=== PATIENT | female | born 1950 | race Hispanic/Latino ===

== ENCOUNTER 2017-11-15 12:00 | Inpatient (IN) | payer MEDICARE, OTHER ==
[~2017-11-15] VITALS: Ht 157.5 cm; Wt 75.9 kg
[2017-11-24 12:47] LABS: BASOPHILS % (AUTO) 0.6 % (0.0-5.0); EOSINOPHILS % (AUTO) 0.9 % (0.0-8.0); HEMATOCRIT 38.1 % (36-48); LYMPHOCYTES % (AUTO) 18.7 % (21.0-51.0); MEAN CORPUSCULAR HEMOGLOBIN 27.9 pg (27.0-33.0); MEAN CORPUSCULAR HGB CONC 33.5 g/dL (32.0-36.0); MEAN CORPUSCULAR VOLUME 83.2 fL (79-99); MONOCYTES % (AUTO) 6.2 % (3.0-13.0); NEUTROPHILS % (AUTO) 73.6 % (40.0-77.0); PLATELET COUNT (AUTO) 182 K/uL (130-400); RED BLOOD CELL COUNT(AUTO) 4.58 MIL/uL (4.00-5.50); RED CELL DISTRIBUTION WIDTH 14.2 % (11.0-15.5); WHITE BLOOD COUNT (AUTO) 6.7 K/uL (4.8-10.8)
[2017-11-24 13:04] LABS: INR 0.99 (0.85-1.15); PARTIAL THROMBOPLASTIN TIME 29.9 SEC (26.3-35.5); PROTHROMBIN TIME 10.4 SEC (9.6-11.6)
[2017-11-24 13:13] VITALS: BP 139/59
[2017-11-24] MEDS ORDERED: LISI1TAB13 PO (13:24)
[2017-11-24] MEDS ORDERED: FLUT16H NASAL (13:24)
[2017-11-24] MEDS ORDERED: LEVO125T11 PO (13:24)
[2017-11-24] MEDS ORDERED: ALBU8.5H8 IH (13:24)
[2017-11-24] MEDS ORDERED: ALBUTEROL NEB (13:25)
[2017-11-24 13:31] LABS: CREATININE 1.1 mg/dL (0.5-1.5)
[2017-11-24] MEDS ORDERED: BISACODYL 10 MG SUPP.RECT RC PRN (14:15)
[2017-11-27] MEDS ORDERED: BISACODYL 10 MG SUPP.RECT RC PRN (14:00)
[2017-11-28] VITALS (27 sets, daily range): BP systolic 105–159; BP diastolic 53–89
[2017-11-28] MEDS ORDERED: BISACODYL 10 MG SUPP.RECT RC PRN ×2 (05:30→18:45)
[2017-11-28] MEDS ORDERED: MAGNESIUM HYDROXIDE 30 ML/UDCUP PO PRN ×2 (05:30→18:45)
[2017-11-28] MEDS ORDERED: DEXTROSE 5%-LACTATED RINGERS 1,000 ML IV SCH ×2 (05:30→18:45)
[2017-11-28 09:16] LABS: APPEARANCE,URINE Clear (CLEAR); BILIRUBIN,URINE Small (NEGATIVE); GLUCOSE, URINE (UA) Negative (NEGATIVE); KETONES,URINE Trace mg/dL (NEGATIVE); LEUKOCYTE ESTERASE ,URINE Moderate (NEGATIVE); NITRATE,URINE Negative (NEGATIVE); OCCULT BLOOD,URINE Nonhemolyzed Trace (NEGATIVE); PROTEIN,URINE Negative (NEGATIVE); UROBILINOGEN,URINE 0.2 mg/dL (0.2-1.0)
[2017-11-28 09:20] LABS: COLOR,URINE YELLOW (YELLOW)
[2017-11-28] MEDS: GENTAMICIN 80 MG/NS 100 ML PB 100 ML IV SCH ×3 (09:30→19:46)
[2017-11-28 09:47] LABS: BACTERIA,URINE Few /HPF (None Seen); MUCUS,URINE Moderate LPF (None Seen)
[2017-11-28] MEDS ORDERED: LACTATED RINGERS 1000ML 1,000 ML IV ONE (09:48)
[2017-11-28] MEDS: CEFAZOLIN SODIUM 1 GM VIAL IVP SCH ×3 (11:08→19:45)
[2017-11-28] MEDS ORDERED: ROPIVACAINE 0.5% 5MG/ML 30ML IJ ONE ×2 (13:26→15:10)
[2017-11-28] MEDS ORDERED: PROPOFOL 10 MG/ML 20ML VIAL IV ONE (13:27)
[2017-11-28] MEDS ORDERED: FENTANYL CITRATE PF 50 MCG/1 ML 2ML VIAL ONE ×2 (13:27→14:11)
[2017-11-28] MEDS ORDERED: MIDAZOLAM HCL 1 MG/ML 2ML VIAL ONE (13:28)
[2017-11-28] MEDS ORDERED: ROCURONIUM BROMIDE 10MG/1ML 5ML VL ONE (13:32)
[2017-11-28 16:21] LABS: HEMATOCRIT 34.1 % (36-48)
[2017-11-28] MEDS ORDERED: MEPERIDINE-PF 25 MG/ML SYG ONE (17:16)
[2017-11-28] MEDS ORDERED: MORPHINE SULFATE 10 MG/ML 1ML SYG IM PRN (18:45)
[2017-11-28] MEDS ORDERED: PROMETHAZINE HCL 25 MG/ML 1ML AMPULE IM PRN (18:45)
[2017-11-28 19:18] LABS: HEMATOCRIT 35.3 % (36-48)
[2017-11-28] MEDS ORDERED: MORPHINE SULFATE 8 MG/ML VIAL ONE (19:41)
[2017-11-28] MEDS ORDERED: CEFTRIAXONE 1GM/D5W 50ML 50 ML IV SCH (22:45)
[2017-11-29] VITALS (7 sets, daily range): BP systolic 102–151; BP diastolic 60–76
[2017-11-29 00:45] LABS: HEMATOCRIT 34.6 % (36-48)
[2017-11-29] MEDS: CEFAZOLIN SODIUM 1 GM VIAL IVP SCH ×2 (01:58→09:58)
[2017-11-29] MEDS: GENTAMICIN 80 MG/NS 100 ML PB 100 ML IV SCH (03:49)
[2017-11-29 06:15] LABS: HEMATOCRIT 32.7 % (36-48)
[2017-11-29] MEDS ORDERED: MORPHINE SULFATE 8 MG/ML VIAL ONE (09:51)
[2017-11-29] MEDS: CEFTRIAXONE SODIUM 1 GM IV SCH (09:58)
[2017-11-29] MEDS ORDERED: LACTATED RINGERS 1000ML 1,000 ML IV ONE (10:10)
[2017-11-29] MEDS ORDERED: ENOXAPARIN SODIUM 40 MG/0.4 ML SYRINGE SQ SCH (15:00)
[2017-11-29] MEDS: ALBUTEROL SULFATE 0.083% 2.5 MG/3 ML INH IH SCH ×2 (19:40→23:35)
[2017-11-29] MEDS: APIXABAN 2.5 MG TABLET PO SCH (20:23)
[2017-11-29] MEDS: ACETAMINOPHEN 325 MG TAB PO PRN (20:23)
[2017-11-30 04:00] VITALS: BP 122/64
[2017-11-30 05:53] LABS: POTASSIUM 3.6 mmol/L (3.5-5.1)
[2017-11-30 05:54] LABS: HEMATOCRIT 31.7 % (36-48); MEAN CORPUSCULAR HEMOGLOBIN 28.5 pg (27.0-33.0); MEAN CORPUSCULAR HGB CONC 34.2 g/dL (32.0-36.0); MEAN CORPUSCULAR VOLUME 83.3 fL (79-99); PLATELET COUNT (AUTO) 124 K/uL (130-400); RED CELL DISTRIBUTION WIDTH 13.9 % (11.0-15.5)
[2017-11-30] MEDS: ALBUTEROL SULFATE 0.083% 2.5 MG/3 ML INH IH SCH ×4 (05:54→23:51)
[2017-11-30 07:55] VITALS: BP 142/66
[2017-11-30] MEDS: FLUTICASONE PROPIONATE 50MCG/SPRAY 16 GM BOTTLE EN SCH (09:15)
[2017-11-30] MEDS: CEFTRIAXONE SODIUM 1 GM IV SCH (09:15)
[2017-11-30] MEDS: APIXABAN 2.5 MG TABLET PO SCH ×2 (09:15→19:51)
[2017-11-30] MEDS: LISINOPRIL 20 MG TABLET PO SCH (09:16)
[2017-11-30] MEDS: HYDROCHLOROTHIAZIDE 25 MG TABLET PO SCH (09:16)
[2017-11-30] MEDS: ACETAMINOPHEN 325 MG TAB PO PRN ×2 (09:16→19:51)
[2017-11-30] MEDS: LEVOTHYROXINE 125 MCG TABLET PO SCH (09:17)
[2017-11-30] MEDS ORDERED: POTASSIUM CHLORIDE 10% ELIXIR 20 MEQ/15 ML UDCUP PO PRN (11:00)
[2017-11-30] MEDS ORDERED: POTASSIUM CHLORIDE 20MEQ/100ML 100 ML IV PRN (11:00)
[2017-11-30] MEDS ORDERED: LIDOCAINE HCL-MPF 1% 2ML VIAL IVP PRN (11:00)
[2017-11-30] MEDS: ACETAMINOPHEN-CODEINE 300/30MG TAB PO PRN (11:16)
[2017-11-30 11:33] VITALS: BP 143/70
[2017-11-30 12:22] LABS: APPEARANCE,URINE Cloudy (CLEAR); BILIRUBIN,URINE Negative (NEGATIVE); COLOR,URINE Yellow (YELLOW); GLUCOSE, URINE (UA) Negative (NEGATIVE); KETONES,URINE Negative (NEGATIVE); LEUKOCYTE ESTERASE ,URINE Trace (NEGATIVE); NITRATE,URINE Negative (NEGATIVE); OCCULT BLOOD,URINE Small (NEGATIVE); PH,URINE 6.5 (5.0-8.0); PROTEIN,URINE Negative (NEGATIVE); UROBILINOGEN,URINE 0.2 mg/dL (0.2-1.0)
[2017-11-30] MEDS: POTASSIUM CHLORIDE 20 MEQ ERTAB PO PRN ×2 (12:38→15:09)
[2017-11-30 13:22] LABS: BACTERIA,URINE Few /HPF (None Seen); MUCUS,URINE Rare LPF (None Seen); RBC,URINE 0-1 /HPF (0-1); SQUAMOUS EPITHELIAL CELL,UR Moderate /HPF (0-2)
[2017-11-30] MEDS ORDERED: PHENAZOPYRIDINE HCL 200 MG TABLET PO SCH (14:00)
[2017-11-30] MEDS: PHENAZOPYRIDINE HCL 200 MG TABLET PO SCH ×2 (15:08→19:51)
[2017-11-30 16:34] VITALS: BP 133/62
[2017-11-30 20:09] VITALS: BP 142/74
[2017-12-01] VITALS (7 sets, daily range): BP systolic 120–146; BP diastolic 49–78
[2017-12-01] MEDS: ACETAMINOPHEN-CODEINE 300/30MG TAB PO PRN ×2 (03:52→10:22)
[2017-12-01] MEDS: ALBUTEROL SULFATE 0.083% 2.5 MG/3 ML INH IH SCH ×3 (07:17→19:55)
[2017-12-01] MEDS: LISINOPRIL 20 MG TABLET PO SCH (09:10)
[2017-12-01] MEDS: HYDROCHLOROTHIAZIDE 25 MG TABLET PO SCH (09:10)
[2017-12-01] MEDS: LEVOTHYROXINE 125 MCG TABLET PO SCH (09:10)
[2017-12-01] MEDS: APIXABAN 2.5 MG TABLET PO SCH ×2 (09:10→22:52)
[2017-12-01] MEDS: PHENAZOPYRIDINE HCL 200 MG TABLET PO SCH ×3 (09:10→22:52)
[2017-12-01] MEDS: CEFTRIAXONE SODIUM 1 GM IV SCH (09:15)
[2017-12-01] MEDS: FLUTICASONE PROPIONATE 50MCG/SPRAY 16 GM BOTTLE EN SCH (10:25)
[2017-12-02] MEDS: ALBUTEROL SULFATE 0.083% 2.5 MG/3 ML INH IH SCH ×3 (00:48→11:16)
[2017-12-02] MEDS: ACETAMINOPHEN-CODEINE 300/30MG TAB PO PRN (02:16)
[2017-12-02 03:45] VITALS: BP 123/59
[2017-12-02 08:25] VITALS: BP 149/69
[2017-12-02] MEDS: LISINOPRIL 20 MG TABLET PO SCH (08:50)
[2017-12-02] MEDS: HYDROCHLOROTHIAZIDE 25 MG TABLET PO SCH (08:50)
[2017-12-02] MEDS: LEVOTHYROXINE 125 MCG TABLET PO SCH (08:50)
[2017-12-02] MEDS: CEFTRIAXONE SODIUM 1 GM IV SCH (08:50)
[2017-12-02] MEDS: PHENAZOPYRIDINE HCL 200 MG TABLET PO SCH (08:50)
[2017-12-02] MEDS: APIXABAN 2.5 MG TABLET PO SCH (08:53)
[2017-12-02] MEDS: FLUTICASONE PROPIONATE 50MCG/SPRAY 16 GM BOTTLE EN SCH (08:54)
[2017-12-02 11:00] VITALS: BP 138/61
== END 2017-12-02 12:30 | disposition home or self-care (01) | DRG 470 ==
LOC: EDSTATUS 12:00 → DAHIP 11-28 08:52 → 4BH 11-28 18:11
PROC: 0SRD0JA Replacement of Left Knee Joint with Synthetic Substitute, Uncemented, Open Approach (ICD-10-PCS; principal; 2017-11-28 10:30)
DX: M17.12 Unilateral primary osteoarthritis, left knee (principal); E03.9 Hypothyroidism, unspecified; N39.0 Urinary tract infection, site not specified; E78.5 Hyperlipidemia, unspecified; I10 Essential (primary) hypertension; J45.909 Unspecified asthma, uncomplicated; M21.169 Varus deformity, not elsewhere classified, unspecified knee; Z79.01 Long term (current) use of anticoagulants; Z87.440 Personal history of urinary (tract) infections; Z88.9 Allergy status to unspecified drugs, medicaments and biological substances; Z90.710 Acquired absence of both cervix and uterus; Z87.828 Personal history of other (healed) physical injury and trauma; Z88.5 Allergy status to narcotic agent; Z88.8 Allergy status to other drugs, medicaments and biological substances
CPT/HCPCS: 36415; 73560; 80048; 81001; 85014; 85018; 85025; 85027; 85610; 85730; 88309; 88311; 94640; 94664; 94760; 97039; A4218; A4606; J0690; J0696; J1580; J2175; J2250; J2270; J2550; J2704; J2795; J3010; J3490; J7120

== ENCOUNTER 2017-12-15 10:52 | Emergency (ER) | payer MEDICARE, OTHER ==
[~2017-12-15 10:52] MED LIST: ALBU8.5H8 IH; ALBUTEROL NEB; FLUT16H NASAL; LEVO125T11 PO; LISI1TAB13 PO
[2017-12-15 11:25] LABS: BASOPHILS % (AUTO) 0.4 % (0.0-5.0); EOSINOPHILS % (AUTO) 0.1 % (0.0-8.0); LYMPHOCYTES % (AUTO) 4.8 % (21.0-51.0); MEAN CORPUSCULAR HEMOGLOBIN 27.1 pg (27.0-33.0); MEAN CORPUSCULAR HGB CONC 32.6 g/dL (32.0-36.0); MEAN CORPUSCULAR VOLUME 83.1 fL (79-99); MONOCYTES % (AUTO) 1.5 % (3.0-13.0); NEUTROPHILS % (AUTO) 93.2 % (40.0-77.0); PLATELET COUNT (AUTO) 360 K/uL (130-400); RED BLOOD CELL COUNT(AUTO) 3.84 MIL/uL (4.00-5.50); RED CELL DISTRIBUTION WIDTH 13.5 % (11.0-15.5); WHITE BLOOD COUNT (AUTO) 11.8 K/uL (4.8-10.8)
[2017-12-15 11:37] LABS: CARBON DIOXIDE 28 mmol/L (21-32); CHLORIDE 102 mmol/L (101-111); CREATININE 1.3 mg/dL (0.5-1.5); GLOMERULAR FILTR. RATE CALC 44 mL/min (>60); GLUCOSE,RANDOM 142 mg/dL (70-105); POTASSIUM 3.8 mmol/L (3.5-5.1); SODIUM SERUM 140 mmol/L (136-145); UREA NITROGEN, BLOOD 28 mg/dL (7-18)
[2017-12-15 11:50] LABS: ALANINE AMINOTRANSFERASE 17 U/L (12-78); ALBUMIN 3.3 g/dL (3.5-5.0); ASPARTATE AMINOTRANSFERASE 15 U/L (10-37); BILIRUBIN,TOTAL 0.5 mg/dL (0.2-1.0); CREATINE KINASE MB < 0.5 ng/mL (0.5-3.6); CREATINE KINASE, TOTAL 27 U/L (21-232); TOTAL PROTEIN, SERUM 7.9 g/dL (6.0-8.3)
[2017-12-15 15:06] LABS: APPEARANCE,URINE Clear (CLEAR); BILIRUBIN,URINE Negative (NEGATIVE); COLOR,URINE Yellow (YELLOW); GLUCOSE, URINE (UA) Negative (NEGATIVE); KETONES,URINE Negative (NEGATIVE); LEUKOCYTE ESTERASE ,URINE Negative (NEGATIVE); NITRATE,URINE Negative (NEGATIVE); OCCULT BLOOD,URINE Trace (NEGATIVE); PROTEIN,URINE Negative (NEGATIVE); UROBILINOGEN,URINE 0.2 mg/dL (0.2-1.0)
[2017-12-15 15:14] LABS: BACTERIA,URINE Rare /HPF (None Seen); RBC,URINE 0-1 /HPF (0-1); SQUAMOUS EPITHELIAL CELL,UR Rare /HPF (0-2); WBC,URINE 0-1 /HPF (0-1)
== END 2017-12-15 16:30 | disposition home or self-care (01) ==
LOC: EDH 10:52
DX: E86.0 Dehydration (principal); T38.0X5A Adverse effect of glucocorticoids and synthetic analogues, initial encounter; I10 Essential (primary) hypertension; M19.90 Unspecified osteoarthritis, unspecified site; Z88.6 Allergy status to analgesic agent; Z90.710 Acquired absence of both cervix and uterus; Z98.890 Other specified postprocedural states; Y92.89 Other specified places as the place of occurrence of the external cause
CPT/HCPCS: 36415; 71045; 80053; 81001; 82550; 82553; 82948; 84484; 85025; 93005; 96360; 96361